=== PATIENT | female | born 1985 | race Caucasian/White ===

== ENCOUNTER 2019-06-27 10:23 | Day surgery (SDC) | payer BC ==
--- NOTE | 2019-06-27 08:27 | HP ---
DATE OF SURGERY: 06/27/2019 HISTORY OF PRESENT ILLNESS: The patient is a 33 year-old with multiple left arm nodules increasing in size and discomfort as well as the left chest. Question whether these are lipomas or other subcutaneous masses (excisional biopsy). PAST MEDICAL HISTORY: Anxiety. PAST SURGICAL HISTORY: Tubal. Tonsillectomy. Browning teeth. She had a couple lipoma removed in the past. MEDICATIONS: Lexapro, Wellbutrin. ALLERGIES: NKDA. LATEX. FAMILY HISTORY: Hypertension, diabetes. SOCIAL HISTORY: Denied smoking. Social alcohol use denies abuse. REVIEW OF SYSTEMS: Fourteen systems reviewed. No chest pain or palpitations other systems negative or noncontributory as above and per preadmission questionnaire. PHYSICAL EXAMINATION: GENERAL: No acute distress. HEENT: Sclerae nonicteric. NECK: No JVD. CHEST: Equal excursion, nonlabored breathing. On the chest area subcutaneous mass. CVS: Regular rate and rhythm. ABDOMEN: Soft. No peritoneal signs. EXTREMITIES: Left arm multiple enlarging symptomatic subcutaneous masses or lipomas left upper extremity. NEURO: Alert, oriented, moving extremities symmetrically. IMPRESSION: Multiple enlarging subcutaneous masses left arm as well as her chest wall. Question lipoma. Increasingly painful and enlarging size. I feel the patient will benefit from excisional biopsy. Risks and benefits explained in detail but not limited to bleeding or infection, risk of hematoma or seroma formation, infection possibly requiring packing. The fact that she will have scars in these areas. Risk of aches, pains, burning or numbness possible extermination inspector or chronic in nature. Possibility of what we excise likely will not recur but she could get similar nodules or lipomas adjacent to or elsewhere on her body. She understands as well as the general risk of anesthesia, deep venous thrombosis, pulmonary embolism or pneumonia. Will proceed with excisional biopsy of multiple subcutaneous masses left arm and left chest wall as an outpatient.
[~2019-06-27 10:23] MED LIST: Lactated Ringers 1,000 ML IV ONE; Sensorcaine 0.25% 10 ML ONE
[2019-06-27] MEDS ORDERED: CEFAZOLIN 2 GM-D5W BAG** 2 GM/50 ML ML IV ONE (10:32)
[2019-06-27] MEDS ORDERED: Lactated Ringers 1,000 ML IV ONE (10:32)
[2019-06-27] MEDS ORDERED: Lactated Ringers 1,000 ML IV SCH (11:00)
[2019-06-27] MEDS ORDERED: CEFAZOLIN 2 GM-D5W BAG** 2 GM/50 ML ML IV SCH (11:00)
[2019-06-27] MEDS ORDERED: DIPRIVAN 200 MG/20 ML IV ONE (12:16)
[2019-06-27] MEDS ORDERED: SUBLIMAZE 100 MCG/2 ML ONE (12:16)
[2019-06-27] MEDS ORDERED: Sensorcaine 0.25% 10 ML ONE (12:27)
[2019-06-27] MEDS ORDERED: DILAUDID 2 MG INJECTION ONE (14:03)
[2019-06-27 14:58] VITALS: O2SAT 95
[2019-06-27] MEDS ORDERED: NORCO 5/325 MG PO PRN (15:09)
[2019-06-27] MEDS ORDERED: NORCO 5/325 MG ONE (15:10)
--- NOTE | 2019-06-27 15:36 | OP ---
SURGERY DATE/TIME: 06/27/2019 1217 PREOPERATIVE DIAGNOSIS: Enlarging, increasingly painful left chest, left upper arm, left lower arm mass or lipoma. POSTOPERATIVE DIAGNOSIS: Enlarging, increasingly painful left chest, left upper arm, left lower arm mass or lipoma. PROCEDURES: 1) Excisional biopsy of chest lipoma roughly 2 cm with intermediate closure. 2) Excisional biopsy left proximal upper arm lipoma 2 cm with intermediate closure. 3) Excisional biopsy distal upper arm lipoma 1.5 cm with intermediate closure. 4) Excisional biopsy distal forearm lipoma down towards the hand #1 of 2 cm with intermediate closure. 5) Excisional biopsy of distal forearm #2 of 2.6 cm, a couple lipoma en block of 2.6 cm with intermediate closure. 6) Excisional biopsy of #3 distal forearm lipoma 1.7 cm with intermediate closure. 7) Excisional biopsy of #4 lipoma forearm lipoma 1.2 cm with intermediate closure. 8) Excisional biopsy of forearm #5 lipoma approximately 1.5 cm with intermediate closure. 9) Excisional biopsy of #6 forearm lipoma approximately 4 cm (large and small totally 4 cm lipoma en bloc) with intermediate closure. 10) Excisional biopsy #7 forearm lipoma at the elbow area 2.4 cm with intermediate closure. SURGEON: Dr. Tino Hernández. ANESTHESIA: General. ESTIMATED BLOOD LOSS: Minimal. INDICATIONS: As noted above. Risks and benefits explained in detail and not limited to and consent obtained. DESCRIPTION OF PROCEDURE AND FINDINGS: The patient is taken to the operating room. General anesthesia induced. She was marked in the preoperative holding area. Prepped and draped in usual sterile fashion. After official time out and no disagreement with planned procedure, a transverse incision made left chest. Dissection carried down circumferentially around 2 cm lipoma excised. It was closed in layers with 3-0 Vicryl, 4-0 Vicryl intermediate fashion. Attention to the proximal upper arm, longitudinal incision made. Dissection carried down 2 cm proximal upper arm lipoma and excised. Closed with 3-0 Vicryl and 4-0 Vicryl. Distal upper arm lipoma 1.5 cm closed with 2-0 Vicryl and 4-0 Vicryl. Attention was then turned to the forearm. Starting distally toward the hand side, biopsy #1 was 2 cm closed with 3-0 and 4-0 Vicryl. Again biopsy #2 forearm was 2.6 cm and biopsy #3 was 1.7 cm each was closed with 3-0 Vicryl and 4-0 Vicryl. Biopsy #4 was 1.2 cm closed with 3-0 Vicryl and 4-0 Vicryl. Biopsy #5 was 1.5 cm closed with 3-0 Vicryl and 4-0 Vicryl. Biopsy #6 was 4 cm including two separate areas en block of 4 cm closed with 3-0 Vicryl and 4-0 Vicryl to close the skin. Biopsy #7 was 2.7 cm closed with 3-0 Vicryl and 4-0 Vicryl. Steri-Strips and sterile dressing applied. 0.25% Marcaine local injection along the area. The patient tolerated the procedure well. There were no complications. Again the procedure took an extra 20-25 minutes as there was only one tech available to assist in the procedure but was accomplished as carefully, safely as possible. All the visible areas had been marked in the preoperative holding area. A couple areas had a couple specimens that were sent en bloc as a single specimen.
[2019-06-27 15:40] VITALS: BP 157/98; PULSE 100
== END 2019-06-27 15:45 | disposition home or self-care (01) ==
LOC: SDC 10:23
PROVIDERS: ATTEND Surgery
DX: D17.1 Benign lipomatous neoplasm of skin and subcutaneous tissue of trunk (principal); D17.22 Benign lipomatous neoplasm of skin and subcutaneous tissue of left arm
CPT/HCPCS: 88304; J0690; J1170; J2704; J3010; A9270-GY

== ENCOUNTER 2021-02-13 13:29 | Emergency (ER) | payer BC, OTHER ==
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
[2021-02-13] MEDS ORDERED: TYLENOL 325 MG PO ONE (14:42)
[2021-02-13] MEDS ORDERED: TYLENOL 325 MG ONE (14:43)
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
[2021-02-13 15:07] VITALS: BP 121/82; PULSE 72
[2021-02-13 15:09] VITALS: O2SAT 100
== END 2021-02-13 15:11 | disposition home or self-care (01) ==
LOC: ED 13:29
DX: S06.0X0A Concussion without loss of consciousness, initial encounter (principal); Y08.89XA Assault by other specified means, initial encounter; Y93.89 Activity, other specified; Y92.219 Unspecified school as the place of occurrence of the external cause; Y99.0 Civilian activity done for income or pay; I60.8 Other nontraumatic subarachnoid hemorrhage; L72.0 Epidermal cyst; S00.03XA Contusion of scalp, initial encounter
CPT/HCPCS: 70450; 99283; A9270-GY